=== PATIENT | male | born 1985 | race Caucasian/White ===

== ENCOUNTER 2018-04-14 08:38 | Emergency (ER) | payer OTHER, SELFPAY ==
[~2018-04-14] VITALS: Ht 185.4 cm; Wt 103.0 kg
[2018-04-14] MEDS ORDERED: ONDANSETRON ODT 4 MG ONE (09:10)
[2018-04-14 09:24] LABS: MEAN CORPUSCULAR HGB CONC 33.3 g/dL (33.2-36.2); MEAN CORPUSCULAR VOLUME 87.2 fL (81-97); MEAN PLATELET VOLUME 9.4 fL (7.4-10.4); PLATELET COUNT 262 x10^3/uL (130-400); RED BLOOD COUNT 5.98 x10^6/uL (4.38-5.82); RED CELL DISTRIBUTION WIDTH 12.9 % (9.4-14.8)
[2018-04-14] MEDS ORDERED: PLEASE ENTER ALLERGIES MC SCH (09:30)
[2018-04-14] MEDS ORDERED: ONDANSETRON ODT 4 MG PO ONE (09:30)
[2018-04-14 09:31] LABS: ALANINE AMINOTRANSFERASE 36 U/L (12-78); ALBUMIN 4.3 g/dL (3.4-5.0); ANION GAP 8 mmol/L (5-15); CALCIUM 9.9 mg/dL (8.5-10.1); CHLORIDE 112 mmol/L (98-107)
[2018-04-14 09:34] LABS: ALKALINE PHOSPHATASE 128 U/L (45-117); BILIRUBIN,TOTAL 0.4 mg/dL (0.2-1.0); TOTAL PROTEIN 7.9 g/dL (6.4-8.2)
[2018-04-14 09:40] LABS: BASOPHILS # (AUTO) 0.01 x10^3/uL (0-0.1); BASOPHILS % (AUTO) 0 % (0-1); EOSINOPHILS % (AUTO) 0 % (1-7); LYMPHOCYTES # (AUTO) 0.92 x10^3/uL (1-3.4); LYMPHOCYTES % (AUTO) 7 % (22-44); MD SCAN; MONOCYTES # (AUTO) 0.37 x10^3/uL (0.2-0.8); MONOCYTES % (AUTO) 3 % (2-9); NEUTROPHILS # (AUTO) 12.05 x10^3/uL (1.8-6.8); NEUTROPHILS % (AUTO) 90 % (42-75)
[2018-04-14] MEDS ORDERED: SODIUM CHLORIDE 0.9% 1,000ML IVBOLUS ONE (10:00)
[2018-04-14] MEDS ORDERED: SODIUM CHLORIDE FLUSH 10ML SYR IVF ONE (10:00)
--- NOTE | 2018-04-14 10:00 | NUR ---
REPORT FROM JEROD MELARA. [facility] AT THIS TIME. EQUAL RISE AND FALL OF CHEST NOTED. WILL CONTINUE TO MONITOR.
--- NOTE | 2018-04-14 10:21 | NUR ---
REQUESTED URINE FROM PT. STATES UNABLE TO PROVIDE AT THIS TIME.
[2018-04-14 11:00] VITALS: BP 137/74
[2018-04-14 11:18] LABS: MICROSCOPIC NOT IND
[2018-04-14 11:22] LABS: CULTURE INDICATED? NO
== END 2018-04-14 12:20 | disposition home or self-care (01) ==
LOC: ED 10:21
DX: E86.0 Dehydration (principal); R19.7 Diarrhea, unspecified; R11.2 Nausea with vomiting, unspecified
CPT/HCPCS: 36415; 80053; 81003; 83690; 85025; 96360; 99283; J7030; Q0162